=== PATIENT | female | born 1970 | race Caucasian/White ===

== ENCOUNTER 2016-10-27 08:56 | Day surgery (SDC) | payer OTHER ==
[~2016-10-27 08:56] MED LIST: DIPRIVAN 200 MG/20 ML IV ONE; Lactated Ringers 1,000 ML IV ONE
[2016-10-27] MEDS ORDERED: Lactated Ringers 1,000 ML IV SCH (09:00)
[2016-10-27 12:41] VITALS: O2SAT 99
[2016-10-27] MEDS ORDERED: Lactated Ringers 1,000 ML IV ONE (12:50)
[2016-10-27 13:19] VITALS: BP 112/75; PULSE 67
--- NOTE | 2016-10-29 14:18 | OP ---
SURGERY DATE/TIME: 10/27/2016 1110 PREOPERATIVE DIAGNOSIS: Blood per rectum. POSTOPERATIVE DIAGNOSIS: Moderate internal hemorrhoids. PROCEDURE: Colonoscopy complete to cecum. SURGEON: Alvarado Teague M.D. ANESTHESIA: MAC sedation. COMPLICATIONS: None. CONDITION: Stable. INDICATION: The patient presents with blood per rectum. DESCRIPTION OF PROCEDURE: Taken to the endoscopy suite. [place] supine position. Left lateral decubitus position. MAC sedation provided. Anal digital examination satisfactory. Colon was slightly redundant, slightly spastic. The scope advanced to the cecum. Ileocecal valve, base of the cecum satisfactory ascending, hepatic, transverse. There was one polyp taken with hot biopsy forceps. There was moderate internal hemorrhoids. The patient tolerated the procedure satisfactorily. As she had one small polyp she was put on a three year follow up.
== END 2016-10-27 13:45 | disposition home or self-care (01) ==
LOC: SDC 08:56
PROVIDERS: ATTEND Surgery
PROC: 0DBH8ZX Excision of Cecum, Via Natural or Artificial Opening Endoscopic, Diagnostic (ICD-10-PCS; principal; 2016-10-27)
DX: K64.8 Other hemorrhoids (principal)
CPT/HCPCS: 00810; 36415; 88305; J2704

== ENCOUNTER 2016-12-22 11:31 | Day surgery (SDC) | payer OTHER ==
--- NOTE | 2016-12-21 08:00 | HP ---
DATE OF SURGERY: 12/22/2016 ADMISSION DIAGNOSIS: Small umbilical hernia. ANTICIPATED PROCEDURE: Repair. HISTORY OF PRESENT ILLNESS: A patient with a small umbilical hernia. PAST MEDICAL HISTORY: ALLERGIES: PENICILLIN. MEDICATIONS: None. PAST SURGICAL HISTORY: Tubal ligation. SOCIAL HISTORY: Negative. FAMILY HISTORY: Negative. REVIEW OF SYSTEMS: Negative. PHYSICAL EXAMINATION: VITAL SIGNS: Normal. CHEST: Clear. COR: Regular. IMPRESSION: Umbilical hernia. PLAN: Repair.
[~2016-12-22 11:31] MED LIST changes: +BRIDION 200MG/2ML IV ONE; +DILAUDID 2 MG INJECTION IV ONE; +Decadron 4 MG INJ IV ONE; +SUBLIMAZE 100 MCG/2 ML IV ONE; +Sensorcaine 0.25% 10 ML ONE; +TORAdol 30 mg Injection IV ONE; +Zemuron 100 MG/10 ML IV ONE; +Zofran 4 MG/2 ML VIAL IV ONE
[2016-12-22] MEDS ORDERED: Lactated Ringers 1,000 ML IV SCH (12:00)
[2016-12-22] MEDS ORDERED: CLINDAMYCIN-D5W 900 MG/50 ML*** 50 ML IV SCH (12:30)
[2016-12-22] MEDS ORDERED: Lactated Ringers 1,000 ML IV ONE (13:50)
[2016-12-22] MEDS ORDERED: DILAUDID 2 MG INJECTION ONE (17:26)
[2016-12-22 17:57] VITALS: O2SAT 100
[2016-12-22 18:10] VITALS: BP 117/77; PULSE 75
--- NOTE | 2016-12-23 07:43 | OP ---
SURGERY DATE/TIME: 12/22/2016 1612 PREOPERATIVE DIAGNOSIS: Symptomatic umbilical hernia. POSTOPERATIVE DIAGNOSIS: Symptomatic umbilical hernia. PROCEDURE: Umbilical herniorrhaphy. SURGEON: Alvarado Teague M.D. ANESTHESIA: General. COMPLICATIONS: None. CONDITION: Stable. INDICATION: A patient with symptomatic umbilical hernia. DESCRIPTION OF PROCEDURE: Taken to surgery. General anesthetic. Routine prep and drape. The umbilicus was lifted up from the superior intranaval incision. There were two components, 1 cm and 3 mm. These were communicated. The defect was clearly unilocular and defined at this time. Fascial edges totally defined. Hernia sac and omentum reduced. There was incarcerated omentum in the defect. It is approximated with 3 sutures #0 Prolene which were placed and then tied down. The third knot was also imbricated down with a suture of 3-0 Vicryl. The skin closed with 4-0 Vicryl. Glue was applied. The patient tolerated the procedure satisfactorily.
== END 2016-12-22 18:35 | disposition home or self-care (01) ==
LOC: SDC 11:31
PROVIDERS: ATTEND Surgery
PROC: 0WQF0ZZ Repair Abdominal Wall, Open Approach (ICD-10-PCS; principal; 2016-12-22)
DX: K42.9 Umbilical hernia without obstruction or gangrene (principal)
CPT/HCPCS: 00750; J1100; J1170; J1885; J2405; J2704; J3010

== ENCOUNTER 2020-08-10 08:36 | Day surgery (SDC) | payer OTHER ==
--- NOTE | 2020-08-10 07:50 | HP ---
DATE OF SURGERY: 08/10/2020 HISTORY OF PRESENT ILLNESS: The patient is a 50 year old who is in need of follow up screening colonoscopy. PAST MEDICAL HISTORY: Right carpal tunnel. She denies any chronic illnesses. PAST SURGICAL HISTORY: Osteotomy in the past. Fallopian tubes removed in the past. Umbilical hernia repair in the past. MEDICATIONS: None on a regular basis. ALLERGIES: PENICILLIN (RASH). FAMILY HISTORY: Heart disease. Diverticular disease. SOCIAL HISTORY: No smoking. Minimal alcohol use. REVIEW OF SYSTEMS: Fourteen systems reviewed per admission assessment. Other systems negative or noncontributory as above and per preadmission questionnaire. PHYSICAL EXAMINATION: GENERAL: No acute distress. HEENT: Sclerae nonicteric. NECK: No JVD. CHEST: Equal excursion, nonlabored breathing. CVS: Regular rate and rhythm. ABDOMEN: Soft, nondistended. EXTREMITIES: No cyanosis. NEURO: Alert, moving extremities symmetrically. RECTAL: Deferred timed to endoscopy exam. PSYCH: Appropriate mood and affect. IMPRESSION: Need for follow up screening colonoscopy. I feel the patient is a candidate. General risk of bleeding or infection, risk of bowel injury or perforation possibly requiring open procedure, risk of missed or nondiagnosis or incomplete exam possibly requiring barium enema, general risk of bowel prep or sedation but not limited to, consent obtained. Will proceed with outpatient follow up screening colonoscopy.
[2020-08-10] MEDS ORDERED: Lactated Ringers 1,000 ML IV SCH (09:30)
[2020-08-10] MEDS ORDERED: DIPRIVAN 200 MG/20 ML IV ONE ×3 (11:39→12:04)
[2020-08-10] MEDS ORDERED: Xylocaine-Mpf 2% 5 Ml Vial ONE ×2 (11:41→11:42)
[2020-08-10] MEDS ORDERED: Lactated Ringers 1,000 ML IV ONE (12:00)
[2020-08-10 13:09] VITALS: O2SAT 100
[2020-08-10 13:23] VITALS: PULSE 63
[2020-08-10 13:46] VITALS: BP 111/63
--- NOTE | 2020-08-10 13:57 | OP ---
SURGERY DATE/TIME: 08/10/2020 1141 PREOPERATIVE DIAGNOSIS: History of polyps. POSTOPERATIVE DIAGNOSES: 1) Small, early polyp versus hyperplastic lesion sigmoid colon. 2) Mild diverticulosis. 3) Fair bowel prep. 4) Very tortuous colon. PROCEDURES: Colonoscopy to cecum with hot biopsy removal of small, early sigmoid colon polyp versus hyperplastic lesion removed with hot biopsy forceps. SURGEON: Dr. Jose Carlos Petersen. ANESTHESIA: MAC. ESTIMATED BLOOD LOSS: Minimal. INDICATIONS: As noted above. Risks and benefits explained in detail but not limited to and consent obtained. DESCRIPTION OF PROCEDURE AND FINDINGS: The patient is taken to the operating room. MAC anesthesia introduced. ASA Class I. She was incrementally sedated with MAC anesthesia. After official time out and no disagreement with planned procedure digital rectal exam did not reveal any rectal masses. She did have some minimal internal hemorrhoids. Video colonoscope passed up through the tortuous sigmoid, descending, transverse and ascending colon. Requiring external pressure and positioning on her back. The scope was able to be passed down the transverse colon, ascending colon to the cecum. Appendiceal orifice and valve were well visualized. The very tip of the terminal ileum grossly unremarkable. Prep overall was fair with a little bit of liquidy and semisolid stool, little solid particles suctioned and irrigated as well as possible. The scope is slowly and carefully withdrawn over the next eight minutes. No signs of any large polyps, masses or obstructing lesions. She did have a few mild diverticula in the left colon. There was a small early polyp versus hyperplastic lesion in the sigmoid colon removed with hot biopsy forceps with brief bursts of cautery. Good hemostasis was noted. There were no signs of any large polyps, masses or obstructing lesions. She tolerated the procedure well. There were no immediate complications. The staff tried to call her but could not reach him. I will have her either follow up in the office next week or call her the results.
--- NOTE | 2020-08-10 14:50 | XRAY ---
History: 50-year-old female for screening mammogram. No risk factors listed. Bilateral low-dose digital mammograms obtained in standard CC and MLO projections using CAD. Comparison: August 01, 2013 and January 10, 2018. Both breasts remain heterogeneously dense. No interval developing suspicious breast mass, calcifications, parenchymal distortion, or skin thickening. Impression: 1. Benign mammogram. 2. Monthly self breast examination recommended as well as follow-up mammograms per ACS guidelines or as otherwise clinically indicated. BI-RADS 1 D. Negative. Dense breasts.
== END 2020-08-10 14:38 | disposition home or self-care (01) ==
LOC: SDC 08:36
PROVIDERS: ATTEND Surgery
DX: Z12.11 Encounter for screening for malignant neoplasm of colon (principal); K57.30 Diverticulosis of large intestine without perforation or abscess without bleeding; K64.8 Other hemorrhoids; Z12.31 Encounter for screening mammogram for malignant neoplasm of breast; K63.5 Polyp of colon
CPT/HCPCS: 77067; J2704